=== PATIENT | female | born 1975 | race African-American/Black ===

== ENCOUNTER 2024-03-02 14:01 | Inpatient (IN) | payer OTHER ==
[~2024-03-02] VITALS: Ht 160 cm; Wt 77.1 kg
[2024-03-02 14:50] LABS: BASOPHILS % 0.2 % (0.0-2.0); HEMATOCRIT. 48.4 % (36.0-48.0); HEMOGLOBIN. 16.4 g/dL (12.0-16.0); LYMPHOCYTES % 8.2 % (20.0-50.0); MEAN CORPUSCULAR HEMOGLOBIN 33.1 pg (28.0-32.0); MEAN CORPUSCULAR HGB CONC 33.8 g/dL (31.0-37.0); MEAN CORPUSCULAR VOLUME 97.9 fL (81.0-99.0); MEAN PLATELET VOLUME 8.7 fl (7.4-10.4); MONOCYTES % 3.8 % (2.0-8.0); NEUTROPHILS % 87.8 % (40.0-76.0); PLATELET 147 x1000/uL (130-400); RED BLOOD CELL COUNT 4.94 mill/uL (4.2-5.4); RED CELL DISTRIBUTION WIDTH 15.3 % (11.6-14.6); WHITE BLOOD COUNT 10.6 x1000/uL (4.5-11.0)
[2024-03-02 14:51] LABS: CHLORIDE 101 mEq/L (98-107); SODIUM 135 mEq/L (136-145)
[2024-03-02 14:52] LABS: CARBON DIOXIDE 21 mEq/L (21-32)
[2024-03-02 14:53] LABS: CALCIUM 10.4 mg/dL (8.7-10.4)
[2024-03-02 14:56] LABS: HCG SCREEN NEGATIVE
[2024-03-02 14:57] LABS: CREATININE 0.8 mg/dL (0.6-1.0); GLUCOSE 277 mg/dL (70-105)
[2024-03-02 14:58] LABS: UREA NITROGEN BLOOD 9 mg/dL (9-23)
[2024-03-02 14:59] LABS: ALANINE AMINOTRANSFERASE 32 IU/L (10-49); ALBUMIN 5.6 g/dL (3.2-4.8); ASPARTATE AMINOTRANSFERASE 38 IU/L (<34)
[2024-03-02 15:00] LABS: BILIRUBIN DIRECT 0.3 mg/dL (<=3.0); BILIRUBIN TOTAL 0.9 mg/dL (0.1-1.0); PROTEIN TOTAL 8.9 g/dL (6.0-8.3)
[2024-03-02 15:02] LABS: ETHANOL BLOOD < 10 mg/dL (<10); TROPONIN I HIGH SENSITIVITY < 4 ng/L (3.0-34)
[2024-03-02] MEDS: METOCLOPRAMIDE HCL 10MG/2ML VIAL IV ONE (15:11)
[2024-03-02] MEDS: MORPHINE SULFATE 4 MG/ML INJ (FOR IV/IM USE) IV ONE ×2 (15:11→18:05)
[2024-03-02 15:44] LABS: PROTHROMBIN TIME 11.4 sec (9.6-11.0)
[2024-03-02 17:05] LABS: TROPONIN I HIGH SENSITIVITY < 4 ng/L (3.0-34)
[2024-03-02] MEDS: HYDRALAZINE 20MG/ML VIAL IV NR (18:05)
[2024-03-02] MEDS: KETOROLAC 30MG/ML VIAL IV ONE (18:05)
[2024-03-02] MEDS: SODIUM CHLORIDE 0.9% 1,000 ML IV NR (22:31)
[2024-03-02] MEDS: ONDANSETRON HCL 4MG/2ML INJ IV ONE (23:13)
[2024-03-02] MEDS: HYDROMORPHONE HCL/PF 2MG/ML INJ IV NR (23:13)
[2024-03-03] VITALS (7 sets, daily range): BP systolic 119–166; BP diastolic 80–114; PULSE 104–137; RESP 17–20; TEMP 35.8362–36.8072; O2SAT 95–98
[2024-03-03] MEDS ORDERED: DEXTROSE 50% WATER 50ML SYRINGE IV PRN (02:30)
[2024-03-03] MEDS ORDERED: ACETAMINOPHEN 325MG TABLET PO PRN (02:30)
[2024-03-03] MEDS ORDERED: NALOXONE HCL 0.4MG/ML VIAL IV PRN (03:00)
[2024-03-03] MEDS: HYDROCODONE/ACETAMINOPHEN 5/325MG TABLET PO PRN (03:38)
[2024-03-03] MEDS: CLONIDINE 0.1MG TABLET PO PRN (03:38)
[2024-03-03] MEDS: BLOOD SUGAR DIAGNOSTIC STRIP TEST SCH (07:20)
[2024-03-03] MEDS: AMLODIPINE 10MG TABLET PO SCH (08:22)
[2024-03-03] MEDS: INSULIN LISPRO 100 UNITS/ML SUBCUT SCH (08:23)
[2024-03-03] MEDS ORDERED: MORPHINE SULFATE 2 MG/ML INJ (NOT FOR IM USE) IV NR (11:30)
[2024-03-03] MEDS ORDERED: IPRATROPIUM/ALBUTEROL 0.5-3(2.5)MG/3ML NEB HHN PRN (11:45)
[2024-03-03] MEDS ORDERED: SODIUM CHLORIDE 0.9% 1,000 ML IV SCH (11:45)
[2024-03-03] MEDS: ONDANSETRON HCL 4MG/2ML INJ IV PRN (11:46)
[2024-03-03 12:35] LABS: HEMATOCRIT. 42.8 % (36.0-48.0); HEMOGLOBIN. 14.6 g/dL (12.0-16.0); MEAN CORPUSCULAR HGB CONC 34.1 g/dL (31.0-37.0); MEAN CORPUSCULAR VOLUME 96.9 fL (81.0-99.0); PLATELET 128 x1000/uL (130-400); RED BLOOD CELL COUNT 4.42 mill/uL (4.2-5.4); RED CELL DISTRIBUTION WIDTH 15.3 % (11.6-14.6); WHITE BLOOD COUNT 12.2 x1000/uL (4.5-11.0)
[2024-03-03 12:58] LABS: CHLORIDE 103 mEq/L (98-107); POTASSIUM 3.6 mEq/L (3.5-5.1); SODIUM 133 mEq/L (136-145)
[2024-03-03 12:59] LABS: CARBON DIOXIDE 19 mEq/L (21-32)
[2024-03-03 13:04] LABS: CREATININE 0.6 mg/dL (0.6-1.0); GLUCOSE 186 mg/dL (70-105); UREA NITROGEN BLOOD 8 mg/dL (9-23)
[2024-03-03 13:09] LABS: DIFFERENTIAL COMMENT 1
[2024-03-03] MEDS ORDERED: HYDROMORPHONE HCL/PF 2MG/ML INJ IV PRN (13:45)
[2024-03-03] MEDS: DILTIAZEM HCL 30MG TABLET PO SCH (14:00)
[2024-03-03] MEDS: HYDRALAZINE HCL 25MG TABLET PO SCH (14:00)
[2024-03-03] MEDS ORDERED: LACTATED RINGERS 1,000 ML IV SCH (14:00)
[2024-03-03 14:09] LABS: TRIGLYCERIDE 70 mg/dL (0-150)
[2024-03-03 14:10] LABS: AMYLASE 277 IU/L (30-118); LDL CHOLESTEROL 82 mg/dL (5-100)
[2024-03-03 14:11] LABS: ALANINE AMINOTRANSFERASE 19 IU/L (10-49); ALBUMIN 4.8 g/dL (3.2-4.8); ASPARTATE AMINOTRANSFERASE 25 IU/L (<34); BILIRUBIN DIRECT 0.4 mg/dL (<=3.0); CHOLESTEROL 199 mg/dL (<200); HDL CHOLESTEROL 94 mg/dL (>65); PROTEIN TOTAL 7.7 g/dL (6.0-8.3)
[2024-03-03 14:13] LABS: T4 FREE 1.25 ng/dL (0.89-1.76); THYROID STIMULATING HORMONE 0.84 uIU/mL (0.55-4.78)
[2024-03-03 15:24] LABS: PLATELET ESTIMATE NORMAL
[2024-03-03] MEDS: LACTATED RINGERS 1,000 ML IV SCH (19:00)
[2024-03-03] MEDS: MORPHINE SULFATE 2 MG/ML INJ (NOT FOR IM USE) IV PRN (21:07)
[2024-03-03] MEDS: DIPHENHYDRAMINE 50MG CAPSULE PO PRN (21:18)
[2024-03-04] VITALS: BP 143/106; PULSE 116; RESP 19; TEMP 36.89184; O2SAT 96
[2024-03-04] MEDS: DOCUSATE SODIUM 100MG CAPSULE PO PRN (02:25)
[2024-03-04 04:00] VITALS: BP 137/93; PULSE 109; RESP 18; TEMP 36.72516; O2SAT 97
[2024-03-04 07:16] LABS: CHLORIDE 100 mEq/L (98-107); POTASSIUM 3.2 mEq/L (3.5-5.1); SODIUM 133 mEq/L (136-145)
[2024-03-04 07:17] LABS: CALCIUM 9.6 mg/dL (8.7-10.4); CARBON DIOXIDE 22 mEq/L (21-32)
[2024-03-04 07:22] LABS: CREATININE 0.6 mg/dL (0.6-1.0); GLUCOSE 203 mg/dL (70-105); TRIGLYCERIDE 85 mg/dL (0-150); UREA NITROGEN BLOOD 7 mg/dL (9-23)
[2024-03-04 07:23] LABS: ALANINE AMINOTRANSFERASE 17 IU/L (10-49); BILIRUBIN TOTAL 1.1 mg/dL (0.1-1.0); PROTEIN TOTAL 7.2 g/dL (6.0-8.3)
[2024-03-04 07:24] LABS: ALBUMIN 4.5 g/dL (3.2-4.8); AMYLASE 176 IU/L (30-118); ASPARTATE AMINOTRANSFERASE 24 IU/L (<34); BILIRUBIN DIRECT 0.4 mg/dL (<=3.0); PHOSPHORUS 2.6 mg/dL (2.5-4.9)
[2024-03-04 07:30] LABS: BASOPHILS % 0.1 % (0.0-2.0); EOSINOPHILS % 0.9 % (0.0-5.0); HEMATOCRIT. 42.1 % (36.0-48.0); HEMOGLOBIN. 14.4 g/dL (12.0-16.0); LYMPHOCYTES % 17.9 % (20.0-50.0); MEAN CORPUSCULAR HEMOGLOBIN 33.5 pg (28.0-32.0); MEAN CORPUSCULAR HGB CONC 34.1 g/dL (31.0-37.0); MEAN CORPUSCULAR VOLUME 98.3 fL (81.0-99.0); MEAN PLATELET VOLUME 10.3 fl (7.4-10.4); MONOCYTES % 6.6 % (2.0-8.0); NEUTROPHILS % 74.5 % (40.0-76.0); PLATELET 119 x1000/uL (130-400); RED BLOOD CELL COUNT 4.28 mill/uL (4.2-5.4); RED CELL DISTRIBUTION WIDTH 15.3 % (11.6-14.6); WHITE BLOOD COUNT 9.7 x1000/uL (4.5-11.0)
[2024-03-04 08:00] VITALS: BP 155/108; PULSE 96; RESP 18; TEMP 36.05844; O2SAT 97
[2024-03-04 12:00] VITALS: BP_SYST 123; BP_SYST 155; BP_DIAS 108; BP_DIAS 86; PULSE 90; PULSE 96; RESP 18; TEMP 36.50292; O2SAT 97
[2024-03-04 12:42] VITALS: RESP 18
[2024-03-04] MEDS: METOPROLOL TARTRATE 50MG TABLET PO NR (12:42)
[2024-03-04] MEDS: INSULIN LISPRO 100 UNITS/ML SUBCUT SCH (12:43)
[2024-03-04] MEDS: PANTOPRAZOLE SODIUM 40 MG/VIAL IV SCH (12:47)
[2024-03-04] MEDS: POTASSIUM CHLORIDE 20MEQ TABLET SR PO NR (12:47)
[2024-03-04] MEDS: MAGNESIUM 2 G PREMIX 50 ML IV NR (12:48)
[2024-03-04] MEDS ORDERED: DILTIAZEM HCL 60MG TABLET PO SCH (14:00)
[2024-03-04] MEDS ORDERED: HYDRALAZINE HCL 50MG TABLET PO SCH (14:00)
[2024-03-04 14:58] VITALS: BP 123/86; PULSE 90; TEMP 97.8; O2SAT 100
== END 2024-03-04 16:45 | disposition home or self-care (01) | DRG 282 ==
LOC: ER 14:01 → EDBEDREQ 21:40 → EDBEDREQTM 21:40 → 5WST 03-03 01:19 → 6EST 03-03 01:52
PROVIDERS: ADMIT Internal Medicine; ATTEND Internal Medicine
DX: K85.90 Acute pancreatitis without necrosis or infection, unspecified (principal); K76.0 Fatty (change of) liver, not elsewhere classified; E11.9 Type 2 diabetes mellitus without complications; I10 Essential (primary) hypertension; D72.825 Bandemia; F10.10 Alcohol abuse, uncomplicated; I16.0 Hypertensive urgency; K86.1 Other chronic pancreatitis; Y90.9 Presence of alcohol in blood, level not specified; Z79.4 Long term (current) use of insulin
CPT/HCPCS: 36415; 71045; 74176; 76700; 80048; 80061; 80076; 80320; 82150; 82962; 83036; 83735; 84100; 84439; 84443; 84478; 84480; 84484; 84703; 85025; 99285; J0360; J1170; J1815; J1885; J2270; J2405; J2470; J2765; J3475; J7120; Q0163; G0480